=== PATIENT | male | born 2000 | race Two or more races ===

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

== ENCOUNTER 2023-10-11 14:28 | Emergency (ER) | payer BC, MEDICAID ==
[~2023-10-11] VITALS: Ht 182.9 cm; Wt 74.8 kg
[2023-10-11 15:16] VITALS: BP 130/86; TEMP 98.2
[2023-10-11] MEDS ORDERED: FLUORESCEIN SODIUM OPHTH 1 EA STRIP OP ONE (17:00)
[2023-10-11] MEDS ORDERED: FLUORESCEIN SODIUM OPHTH 1 EA STRIP ONE (17:08)
[2023-10-11] MEDS ORDERED: CIPR2.5D14 RIGHTEYE (17:28)
[2023-10-11] MEDS ORDERED: AMOX-430 PO (17:28)
[2023-10-11] MEDS ORDERED: ONDANSETRON HCL/PF 4 MG/2 ML VIAL ONE (17:30)
[2023-10-11] MEDS ORDERED: ACETAMINOPHEN ES 500 MG TABLET PO ONE (17:30)
[2023-10-11] MEDS ORDERED: ONDANSETRON 4 MG TAB.RAPDIS SL ONE (17:30)
[2023-10-11] MEDS ORDERED: IBUPROFEN 600 MG TABLET PO ONE (17:30)
[2023-10-11] MEDS ORDERED: ACETAMINOPHEN ES 500 MG TABLET ONE (17:31)
[2023-10-11] MEDS ORDERED: IBUPROFEN 600 MG TABLET ONE (17:31)
[2023-10-11] MEDS ORDERED: ONDANSETRON 4 MG TAB.RAPDIS ONE (17:32)
[2023-10-11] MEDS ORDERED: BENZ-13 PO (17:40)
[2023-10-11] MEDS ORDERED: GUAI5SYR PO (17:49)
[2023-10-11 18:00] VITALS: O2SAT 100
[2023-10-11 18:11] LABS: APPEARANCE,URINE CLEAR (CLEAR); BILIRUBIN,URINE NEGATIVE (NEGATIVE); BLOOD, URINE NEGATIVE Ery/uL (NEGATIVE); COLOR,URINE YELLOW (YELLOW); KETONES,URINE TRACE mg/dL (NEGATIVE); LEUKOCYTE ESTERASE ,URINE NEGATIVE (NEGATIVE); NITRITE, URINE NEGATIVE (NEGATIVE); PROTEIN,URINE NEGATIVE (NEGATIVE); UGLUCOSE NEGATIVE (NEGATIVE); UROBILINOGEN,URINE 0.2 EU/dL (0.2)
[2023-10-11 19:04] LABS: ADD URINE CULTURE NO; BACTERIA,URINE None seen /HPF (None Seen); RBC,URINE 0-2 /HPF (0-2); SQUAMOUS EPITHELIAL CELL,UR 0-2 /HPF (None Seen); WBC,URINE 0-2 /HPF (0-3)
[2023-10-13 23:06] LABS: CHLAMYDIA TRACHOMATIS NAA Negative (Negative); NEISSERIA GONORRHOEAE NAA Negative (Negative)
== END 2023-10-11 18:00 | disposition home or self-care (01) ==
LOC: ER 14:35
DX: S05.01XA Injury of conjunctiva and corneal abrasion without foreign body, right eye, initial encounter (principal); H00.032 Abscess of right lower eyelid; F17.200 Nicotine dependence, unspecified, uncomplicated; Z79.899 Other long term (current) drug therapy; X58.XXXA Exposure to other specified factors, initial encounter; Y93.89 Activity, other specified; Y92.89 Other specified places as the place of occurrence of the external cause; Y99.8 Other external cause status
CPT/HCPCS: 99284; 81001; 87491; 87591; Q0162; J2405